=== PATIENT | female | born 1985 | race African-American/Black ===

== ENCOUNTER 2017-08-23 16:45 | Emergency (ER) | payer OTHER ==
[2017-08-23 18:57] VITALS: BP 137/85
--- NOTE | 2017-08-23 19:09 | RAD ---
Indication: LEFT shoulder pain radiating down the arm. Unable to lift LEFT arm. Comparison: No relevant prior exams available on the [facility] for comparison. Technique: Internal rotation AP, external rotation Grashey, scapular Y, axillary views LEFT shoulder Report: Normal acromioclavicular and glenohumeral joint alignment. Negative for fracture. Large burden of calcific tendinopathy involving the infraspinatus tendon and possibly the teres minor tendon. Unremarkable soft tissue contours. IMPRESSION: Calcific tendinopathy involving the infraspinatus tendon and possibly the teres minor tendon.
--- NOTE | 2017-08-30 19:45 | ED ---
Skip Osborn Rebecca, scribed for Dinesh George MD on 08/23/17 at 1726 . Upper Extremity Pain - HPI Summary HPI Summary: Pt is a 32 y/o F who presents to ED c/o L shoulder pain. Sx began suddenly this morning upon waking up with no trauma. Pain is currently severe, ranked 8/10. Confirms she was asymptomatic last night. Sx aggravated by movement, alleviated by nothing. Pt additionally c/o decreased ROM. Prior similar episodes of L arm pain though not as severely. - History of Current Complaint Chief Complaint: EDExtremityUpper Stated Complaint: ARM INJURY Time Seen by Provider: 08/23/17 17:23 Hx Obtained From: Patient Onset/Duration: Still Present Severity Currently: Severe - 8/10 Pain Location: Shoulder Aggravating Factor(s): Movement Alleviating Factor(s): Nothing Associated Signs & Symptoms: Positive: Other - Decreased ROM Related History: Similar Episode/Dx As - Prior similar episodes, though less severely - Allergies/Home Medications Allergies/Adverse Reactions: Allergies Allergy/AdvReac Type Severity Reaction Status Date / Time No Known Allergies Allergy Verified 08/23/17 17:36 PMH/Surg Hx/FS Hx/Imm Hx Endocrine/Hematology History: Denies: Hx Diabetes Cardiovascular History: Denies: Hx Coronary Artery Disease Infectious Disease History: No Infectious Disease History: Denies: Traveled Outside the [place] in Last 30 Days - Family History Known Family History: Negative: Cardiac Disease, Hypertension, Diabetes - Social History Alcohol Use: None Substance Use Type: Reports: None Smoking Status (MU): Former Smoker Review of Systems Negative: Fever Positive: Arthralgia - L shoulder pain with decreased ROM All Other Systems Reviewed And Are Negative: Yes Physical Exam - Summary Physical Exam Summary: Appearance: Well-appearing, Well-nourished Skin: Warm, Dry, No rash Eyes: Normal, PERRL, EOMI, sclera anicteric ENT: Normal Neck: Supple, nontender Respiratory: Clear to auscultation Cardiovascular: S1, S2, no murmur, no rub, no gallop Abdomen: Soft, nontender, no organomegaly Bowel sounds: Present Musculoskeletal: Left shoulder in the biceps tendon, pain on abduction, external rotation and internal rotation with very limited ROM, no swelling, no erythema, pulses intact and symmetrical. Good flexion and extension of the fingers and wrist, normal interosseous muscle strength, normal sensation of the median, radial, and ulnar nerves, strength Intact, no edema, pulses symmetrical Neurological: Normal, A&Ox3, cranial nerves II-XII WNL, follows commands, gait not tested, sensation intact to pin and light touch Psychiatric: affect normal, behavior appropriate, dressed appropriately, judgment intact Triage Information Reviewed: Yes Vital Signs On Initial Exam: Initial Vitals Temp Pulse Resp BP Pulse Ox 96.8 F 67 20 146/99 99 08/23/17 17:00 08/23/17 17:00 08/23/17 17:00 08/23/17 17:00 08/23/17 17:00 Vital Signs Reviewed: Yes Diagnostics - Vital Signs Vital Signs Temp Pulse Resp BP Pulse Ox 08/23/17 17:00 96.8 F 67 20 146/99 99 - Laboratory Lab Statement: Any lab studies that have been ordered have been reviewed, and results considered in the medical decision making process. - Radiology Shoulder XR Xray Interpretation: Positive (See Comments) - Calcific tendinopathy involving the infraspinatus tendon and possibly the teres minor tendon. Dr. George reviewed this radiology report. Radiology Interpretation Completed By: Radiologist Course/Dx - Course Assessment/Plan: Pt is a 32 y/o F who presents to ED c/o L shoulder pain since this morning upon waking up with no trauma. Pain is currently severe, ranked 8/ 10. Confirms she was asymptomatic last night. Sx aggravated by movement. Pt additionally c/o decreased ROM. Prior similar episodes of L arm pain though not as severely. Shoulder XR reveals calcific tendinopathy involving the infraspinatus tendon and possibly the teres minor tendon. She will be D/C to home with Dx of rotator cuff tendonitis. She understands and agrees. - Diagnoses Provider Diagnoses: Rotator cuff tendonitis Discharge - Discharge Plan Condition: Good Disposition: HOME Prescriptions: Naproxen TAB* [Naprosyn 375 mg TAB*] 375 mg PO Q8H PRN #21 tab PRN Reason: Pain Patient Education Materials: Rotator Cuff Tendinitis (ED), Tendinitis (ED) Referrals: Yaakov Abad MD [Medical Doctor] - No Primary Care Phys,NOPCP [Primary Care Provider] - Additional Instructions: ice elevation, range of motion exercises The documentation as recorded by the Skip cornell Rebecca accurately reflects the service I personally performed and the decisions made by me, Dinesh George MD.
== END 2017-08-23 18:56 | disposition home or self-care (01) ==
LOC: ED 16:45
DX: M75.102 Unspecified rotator cuff tear or rupture of left shoulder, not specified as traumatic (principal); M25.512 Pain in left shoulder; Z87.891 Personal history of nicotine dependence
CPT/HCPCS: 99282